=== PATIENT | male | born 1945 | race Hispanic/Latino ===

== ENCOUNTER 2025-06-01 07:06 | Emergency (ER) | payer MEDICARE ==
[~2025-06-01] VITALS: Ht 182.9 cm; Wt 111.1 kg
[2025-06-01 07:17] VITALS: TEMP 99.7
[2025-06-01 08:18] LABS: BASOPHILS % 0.6 % (0.0-1.0); EOSINOPHILS % 0.2 % (0.0-6.0); LYMPHOCYTES % 9.2 % (18.0-39.1); MONOCYTES % 9.5 % (4.4-11.3); NEUTROPHILS % 80.0 % (38.7-80.0); RED CELL DISTRIBUTION WIDTH 12.9 % (11.7-14.4)
[2025-06-01 08:44] LABS: EST GLOMERULAR FILTRATION RATE 87.0 ML/MIN (>=60)
[2025-06-01 09:11] LABS: CORONAVIRUS COVID-19 AG NEGATIVE (NEGATIVE)
[2025-06-01] MEDS: DEXAMETHASONE 4 MG TAB PO STA (09:27)
[2025-06-01] MEDS: KETOROLAC TROMETHAMINE 30 MG/ML VIAL IV STA (09:28)
[2025-06-01] MEDS ORDERED: SODIUM CHLORIDE 0.9% 100 ML ONE (09:53)
[2025-06-01] MEDS ORDERED: IOPAMIDOL 370 MG/ML 100 ML INFUS..BTL INJ ONE (09:53)
[2025-06-01 09:58] LABS: STREPTOCOCCUS GRP A ANTIGEN NEGATIVE (NEGATIVE)
[2025-06-01 10:34] VITALS: PULSE 83; RESP 18; O2SAT 97
== END 2025-06-01 12:10 | disposition other institution (70) ==
LOC: ER 07:15
DX: J36 Peritonsillar abscess (principal); I10 Essential (primary) hypertension; E78.5 Hyperlipidemia, unspecified; Z11.52 Encounter for screening for COVID-19; Z86.718 Personal history of other venous thrombosis and embolism
CPT/HCPCS: 36415; 70491; 80048; 83518; 85025; 87070; 87428; 99284; J1885; J2543; J7050; J8540; Q9967